=== PATIENT | female | born 1945 | race Caucasian/White ===

== ENCOUNTER 2020-03-09 17:47 | Inpatient (IN) | payer MEDICARE, OTHER ==
[~2020-03-09] VITALS: Ht 160 cm; Wt 49.4 kg
[2020-03-09] MEDS ORDERED: QUET100T PO (18:24)
[2020-03-09] MEDS ORDERED: CHOL10002 PO (18:24)
[2020-03-09] MEDS ORDERED: TRAZ-257 PO (18:24)
[2020-03-09] MEDS ORDERED: QUET25TA PO ×2 (18:24)
[2020-03-09 18:25] LABS: CARBON DIOXIDE 26 mmol/L (21-32); CHLORIDE 105 mmol/L (98-107); CREATININE 0.6 mg/dL (0.6-1.3); GLUCOSE 94 mg/dL (74-106); POTASSIUM 3.6 mmol/L (3.5-5.1); UREA NITROGEN, BLOOD 7 mg/dL (7-18)
[2020-03-09 18:26] LABS: ETHANOL < 3 MG/DL (0-0); PLATELET COUNT (AUTO) 378 K/uL (179-408)
[2020-03-09 18:30] LABS: ALANINE AMINOTRANSFERASE 12 U/L (14-59); ALKALINE PHOSPHATASE 114 U/L (50-136); ASPARTATE AMINOTRANSFERASE 12 U/L (15-37); BASOPHILS % (AUTO) 0.4 % (0.0-2.0); BILIRUBIN,DIRECT 0.1 mg/dL (0.0-0.2); BILIRUBIN,TOTAL 0.3 mg/dL (0.2-1.0); HEMATOCRIT 36.1 % (31.2-41.9); LYMPHOCYTES # (AUTO) 1.9 K/uL (20.0-40.0); LYMPHOCYTES % (AUTO) 25.5 % (20.5-51.5); MEAN CORPUSCULAR HEMOGLOBIN 31.4 uug (24.7-32.8); MEAN CORPUSCULAR HGB CONC 33 g/dL (32.3-35.6); MEAN CORPUSCULAR VOLUME 94.7 fL (75.5-95.3); MONOCYTES # (AUTO) 0.7 K/uL (2.0-10.0); MONOCYTES % (AUTO) 9.6 % (0.0-11.0); NEUTROPHILS # (AUTO) 4.9 K/uL (1.8-8.9); NEUTROPHILS % (AUTO) 64.5 % (38.5-71.5); RED BLOOD CELL COUNT(AUTO) 3.81 MIL/uL (3.63-4.92); TOTAL PROTEIN, SERUM 6.5 g/dL (6.4-8.2); WHITE BLOOD COUNT (AUTO) 7.6 K/uL (3.8-11.8)
[2020-03-09 18:34] LABS: ACETAMINOPHEN < 2.0 ug/mL (10-30)
--- NOTE | 2020-03-09 18:37 | NUR ---
Pt provided fluid, taken w/o difficulty.
[2020-03-09] MEDS ORDERED: OXYCODONE/APAP 5-325 MG TABLET PO ONE (19:15)
[2020-03-09] MEDS ORDERED: LORAZEPAM 0.5 MG TABLET PO ONE (19:45)
[2020-03-09] MEDS ORDERED: LORAZEPAM 0.5 MG TABLET ONE (19:48)
[2020-03-09] MEDS ORDERED: OXYCODONE/APAP 5-325 MG TABLET ONE (19:53)
--- NOTE | 2020-03-09 20:28 | NUR ---
Medically cleared by DR Marshall.
--- NOTE | 2020-03-09 20:52 | NUR ---
Tolerating dinner provided at this time.
--- NOTE | 2020-03-09 22:20 | NUR ---
Transfered to MHU via wheelchair with no distress noted.
[2020-03-09 22:30] VITALS: BP 136/74
[2020-03-09] MEDS ORDERED: MAGNESIUM HYDROXIDE 30 ML LIQUID UDC PO PRN (23:15)
[2020-03-09] MEDS ORDERED: MAG HYDROX/AL HYDROX/SIMETH 30 ML LIQUID UDC PO PRN (23:15)
--- NOTE | 2020-03-09 23:30 | NUR ---
GPS ADMISSION NOTE; Patient is a 74 year old female, brought to the hospital by ambulance on a 5150 from [facility]. Prior to that, patient was living alone in an apartment. Patient admitted on 5150 as DTS. As per hold the patient called 911 because she ran out of " Seroquel " and " feeling suicidal ". Patient stated that she would hurt herself if she did not get help immediately. Upon face to face evaluation, patient is alert and oriented x3. Patient suffers from chronic back pain and was asking for pain medications upon arrival to the unit. Patient admitted to feeling suicidal, but has no plan and does not wish to be but wants medications. Patient stated she is " At war with [facility] because the will not refill my medications. I have not had my medications for 10 days". This patient is anxious and unable to concentrate. Very impatient with admission process. Patient has no family to call, but does have a friend. She lives alone and almost never goes out anywhere. Her appearance is unkept and unclean. Shower offered and patient refused. This selling underwriter oriented patient to the environment, provided a Patient Rights Handbook and the Advisement. VS stable and no acute distress at this time. Patient requested medication for sleep. Multiple allergies noted . [facility] will monitor for safety, pain, insomnia and any behavior escalation. Prior to bed, patient is denying SI and HI. SI precautions in place at this time ,to ensure safety, frequent rounding being done.
[2020-03-09] MEDS: TEMAZEPAM 7.5 MG CAPSULE PO PRN (23:55)
--- NOTE | 2020-03-10 05:57 | NUR ---
Patient received a PRN medication and slept 5.45 hours. No acute issues during the night. No SI at this time Continuing to monitor for safety.
[2020-03-10 07:30] VITALS: BP 134/68
[2020-03-10 07:58] LABS: BILIRUBIN,TOTAL 0.3 mg/dL (0.2-1.0); CREATININE 0.6 mg/dL (0.6-1.3); POTASSIUM 3.5 mmol/L (3.5-5.1); TOTAL PROTEIN, SERUM 6.5 g/dL (6.4-8.2)
[2020-03-10] MEDS ORDERED: HYDROCODONE/APAP 5-325MG TABLET PO PRN (09:15)
[2020-03-10] MEDS ORDERED: OXYCODONE/APAP 5-325 MG TABLET PO PRN (09:30)
--- NOTE | 2020-03-10 10:44 | NUR ---
Firearms Report: Data Reviewer completed and submitted a [employer] firearms report for 5150 danger to self certification. A copy of report has been placed in patient chart.
--- NOTE | 2020-03-10 11:31 | NUR ---
MAYA Initial Discharge Plan: Patient currently resides at home [address] [place] [address], states she is renting a room. Patient provided her psychiatrist as a supportive contact Nava Villatoro ([phone]). SW called and left a voicemail. Patient would like to return home upon discharge. MAYA will continue to work with patient, family, and MD to ensure a safe and proper discharge plan.
--- NOTE | 2020-03-10 11:32 | NUR ---
MAYA Psychiatrist Contact: MAYA contacted patient's psychiatrist as a supportive contact Nava Villatoro ([phone]) however unable to reach at this time and left a voicemail for a return call.
[2020-03-10] MEDS: LORAZEPAM 1 MG TABLET PO PRN (13:02)
[2020-03-10] MEDS: OXYCODONE/APAP 5-325 MG TABLET PO PRN ×2 (17:12→23:36)
[2020-03-10] MEDS: ENSURE ENLIVE (VAN) 240 ML LIQUID PO SCH (17:13)
[2020-03-10 20:00] VITALS: BP 131/76
[2020-03-10] MEDS: TRAZODONE 100 MG TABLET PO SCH (20:00)
[2020-03-11] MEDS: TEMAZEPAM 7.5 MG CAPSULE PO PRN (01:24)
--- NOTE | 2020-03-11 06:14 | NUR ---
GPS: Remain calm and cooperative. compliant with medications. denies si. self care. slept 8.15 hrs through the night after sleeping meds given resting in brd comfortably. continue plan of care.
[2020-03-11 07:30] VITALS: BP 133/69
[2020-03-11] MEDS: CHOLECALCIFEROL 1,000 UNIT TABLET PO SCH (08:13)
[2020-03-11] MEDS: OXYCODONE/APAP 5-325 MG TABLET PO PRN ×3 (08:16→22:22)
[2020-03-11] MEDS: ENSURE ENLIVE (VAN) 240 ML LIQUID PO SCH ×2 (08:18→16:10)
[2020-03-11] MEDS ORDERED: VENLAFAXINE XR 37.5 MG CAP.SR.24H PO SCH (09:00)
[2020-03-11] MEDS: VENLAFAXINE XR 75 MG TAB.ER.24H PO SCH (10:17)
[2020-03-11] MEDS: LORAZEPAM 1 MG TABLET PO PRN ×2 (11:56→17:17)
[2020-03-11 16:02] VITALS: BP 122/65
[2020-03-11] MEDS: TRAZODONE 100 MG TABLET PO SCH (20:42)
[2020-03-11 20:46] VITALS: BP 97/67
--- NOTE | 2020-03-11 21:08 | NUR ---
PATIENT RECEVED IN THE HALLWAY. PATIENT IS PLEASANT UPON APPROACH, CALM AND COOPERATIVE. PATIENT COMPLAINT WITH MEDICATION. PATIENT DENIES SI. PATIENT IS ENCOURAGED TO EXPRESS FEELINGS AND ATTEND GROUP ACTIVITIES. SAFE ENVIRONMENT PROVIDED, FREQUENT ROUNDING. BED IN LOWEST POSITION, BED LOCKED, AND BED ALARM ON WHILE IN BED.
[2020-03-11 22:25] VITALS: BP 120/72
[2020-03-12 07:30] VITALS: BP 102/58
[2020-03-12] MEDS: CHOLECALCIFEROL 1,000 UNIT TABLET PO SCH (08:38)
[2020-03-12] MEDS: OXYCODONE/APAP 5-325 MG TABLET PO PRN ×3 (08:39→20:12)
[2020-03-12] MEDS: VENLAFAXINE XR 75 MG TAB.ER.24H PO SCH (08:39)
[2020-03-12] MEDS: ENSURE ENLIVE (VAN) 240 ML LIQUID PO SCH ×2 (08:40→17:12)
[2020-03-12] MEDS: LORAZEPAM 1 MG TABLET PO PRN (12:24)
[2020-03-12 15:29] VITALS: BP 129/70
--- NOTE | 2020-03-12 16:30 | NUR ---
Gps/Ore Bridge Operator- Attended group therapy this pm. less anxious, adequate relief from her back pain. interacting with her peers.
--- NOTE | 2020-03-12 20:48 | NUR ---
PATIENT RECEIVED IN ACTIVITIES ROOM WATCHING TELEVISION AND COMMUNICATING WITH PEERS. PATIENT IS PLEASANT UPON APPROACH, CALM AND COOPERATIVE. PATIENT COMPLAINT WITH MEDICATION. PATIENT DENIES SI. PATIENT IS ENCOURAGED TO EXPRESS FEELINGS AND ATTEND GROUP ACTIVITIES. SAFE ENVIRONMENT PROVIDED, FREQUENT ROUNDING. BED IN LOWEST POSITION, BED
[2020-03-12] MEDS: TRAZODONE 100 MG TABLET PO SCH (21:35)
[2020-03-12 21:39] VITALS: BP 107/58
[2020-03-13 07:30] VITALS: BP 104/53
[2020-03-13] MEDS: OXYCODONE/APAP 5-325 MG TABLET PO PRN ×3 (07:52→20:02)
[2020-03-13] MEDS: CHOLECALCIFEROL 1,000 UNIT TABLET PO SCH (08:19)
[2020-03-13] MEDS: ENSURE ENLIVE (VAN) 240 ML LIQUID PO SCH ×2 (08:19→16:56)
[2020-03-13] MEDS: VENLAFAXINE XR 75 MG TAB.ER.24H PO SCH (08:19)
[2020-03-13] MEDS: LORAZEPAM 1 MG TABLET PO PRN ×2 (11:40→18:36)
--- NOTE | 2020-03-13 11:56 | NUR ---
MAYA PC Hearing: Patient had probable cause hearing today and it was upheld for danger to self and grave disability.
[2020-03-13 16:35] VITALS: BP 122/72
[2020-03-13 20:17] VITALS: BP 123/74
[2020-03-13] MEDS: QUETIAPINE FUMARATE 25 MG TABLET PO SCH (20:44)
[2020-03-13] MEDS: TRAZODONE 100 MG TABLET PO SCH (20:44)
--- NOTE | 2020-03-14 06:28 | NUR ---
GPS: Remain calm and cooperative. compliant with medications. denies si. self care. slept 7.45 hrs through the night. No agitation noted at this time. resting in bed comfortably. continue plan of care.
[2020-03-14 07:30] VITALS: BP 96/55
[2020-03-14] MEDS: OXYCODONE/APAP 5-325 MG TABLET PO PRN ×3 (08:37→19:55)
[2020-03-14] MEDS: VENLAFAXINE XR 75 MG TAB.ER.24H PO SCH (08:37)
[2020-03-14] MEDS: ENSURE ENLIVE (VAN) 240 ML LIQUID PO SCH ×2 (08:38→16:45)
[2020-03-14] MEDS: CHOLECALCIFEROL 1,000 UNIT TABLET PO SCH (08:39)
[2020-03-14] MEDS: LORAZEPAM 1 MG TABLET PO PRN (12:11)
[2020-03-14 15:08] VITALS: BP 100/60
[2020-03-14 19:57] VITALS: BP 110/61
[2020-03-14] MEDS: TRAZODONE 100 MG TABLET PO SCH (21:05)
[2020-03-14] MEDS: QUETIAPINE FUMARATE 25 MG TABLET PO SCH (21:05)
[2020-03-15] MEDS: OXYCODONE/APAP 5-325 MG TABLET PO PRN ×4 (04:07→23:16)
--- NOTE | 2020-03-15 05:51 | NUR ---
GPS: GPS: Remain calm and cooperative. compliant with medications. denies si. self care. slept 7.15 hrs through the night. Percocet x2 given through the shift for pain. No agitation noted at this time. resting in bed comfortably. continue plan of care.
[2020-03-15] MEDS: LEVOTHYROXINE SODIUM 75 MCG TABLET PO SCH (06:08)
[2020-03-15 07:30] VITALS: BP 96/54
[2020-03-15] MEDS: CHOLECALCIFEROL 1,000 UNIT TABLET PO SCH (09:10)
[2020-03-15] MEDS: VENLAFAXINE XR 75 MG TAB.ER.24H PO SCH (09:10)
[2020-03-15] MEDS: ENSURE ENLIVE (VAN) 240 ML LIQUID PO SCH ×2 (09:11→16:36)
[2020-03-15 15:20] VITALS: BP 92/47
[2020-03-15 20:12] VITALS: BP 114/73
[2020-03-15] MEDS: TRAZODONE 100 MG TABLET PO SCH (20:32)
[2020-03-15] MEDS: QUETIAPINE FUMARATE 25 MG TABLET PO SCH (20:32)
--- NOTE | 2020-03-16 05:42 | NUR ---
Patient slept 7.00 hours last night. Only up once during the night asking for pain medication for her back and up early this am, again wanting pain medication. Patient refusing to shower. Continuing to monitor for pain and safety. Patient denies SI at this time. No acute distress noted.
[2020-03-16] MEDS: OXYCODONE/APAP 5-325 MG TABLET PO PRN ×3 (05:53→23:17)
[2020-03-16] MEDS: LEVOTHYROXINE SODIUM 75 MCG TABLET PO SCH (05:53)
[2020-03-16 07:30] VITALS: BP 94/48
[2020-03-16] MEDS: ENSURE ENLIVE (VAN) 240 ML LIQUID PO SCH ×4 (08:00→17:17)
[2020-03-16] MEDS: CHOLECALCIFEROL 1,000 UNIT TABLET PO SCH (08:48)
[2020-03-16] MEDS: VENLAFAXINE XR 75 MG TAB.ER.24H PO SCH (08:48)
[2020-03-16] MEDS: LORAZEPAM 1 MG TABLET PO PRN (14:46)
[2020-03-16 15:51] VITALS: BP 106/65
[2020-03-16 20:00] VITALS: BP 101/60
[2020-03-16] MEDS: TRAZODONE 100 MG TABLET PO SCH (20:09)
[2020-03-16] MEDS: QUETIAPINE FUMARATE 25 MG TABLET PO SCH (20:10)
--- NOTE | 2020-03-17 06:03 | NUR ---
Patient was requesting pain medication once during the night and slept 7.30 hours. Patient expressed feeling depressed, but denied SI. Mountain Services Manager and patient engaged in meaningful conversation and talked about some cooping strategies. Patient verbalized understanding. No acute issues noted . Continuing to monitor pain level and for safety. Frequent rounding done.
[2020-03-17] MEDS: LEVOTHYROXINE SODIUM 75 MCG TABLET PO SCH (06:47)
[2020-03-17 07:30] VITALS: BP 77/49
[2020-03-17] MEDS: CHOLECALCIFEROL 1,000 UNIT TABLET PO SCH (08:32)
[2020-03-17] MEDS: VENLAFAXINE XR 75 MG TAB.ER.24H PO SCH (08:32)
[2020-03-17] MEDS: OXYCODONE/APAP 5-325 MG TABLET PO PRN ×3 (08:33→20:52)
[2020-03-17] MEDS: ENSURE ENLIVE (VAN) 240 ML LIQUID PO SCH ×3 (08:33→16:21)
[2020-03-17 16:00] VITALS: BP 109/65
[2020-03-17 20:29] VITALS: BP 107/63
[2020-03-17] MEDS: QUETIAPINE FUMARATE 25 MG TABLET PO SCH (21:16)
[2020-03-17] MEDS: TRAZODONE 100 MG TABLET PO SCH (21:16)
[2020-03-17] MEDS: LORAZEPAM 1 MG TABLET PO PRN (22:31)
[2020-03-18] MEDS: LEVOTHYROXINE SODIUM 75 MCG TABLET PO SCH (06:39)
[2020-03-18 07:30] VITALS: BP 96/60
--- NOTE | 2020-03-18 07:30 | NUR ---
received patient in her room, calm cooperative, patient compliant with medication, patient asked for her pain medication, gave pain meds as ordered , monitored [id number] for safety
[2020-03-18] MEDS: CHOLECALCIFEROL 1,000 UNIT TABLET PO SCH (08:24)
[2020-03-18] MEDS: VENLAFAXINE XR 75 MG TAB.ER.24H PO SCH (08:24)
[2020-03-18] MEDS: CLONAZEPAM 0.5 MG TABLET PO SCH ×2 (08:24→16:08)
[2020-03-18] MEDS: ENSURE ENLIVE (VAN) 240 ML LIQUID PO SCH ×3 (09:00→17:00)
[2020-03-18] MEDS: OXYCODONE/APAP 5-325 MG TABLET PO PRN ×3 (09:07→21:50)
[2020-03-18 16:24] VITALS: BP 125/71
--- NOTE | 2020-03-18 18:50 | NUR ---
PATIENT CALM , COOPERATIVE, NO SIGN OF DISTRESS, MONITORED [id number] NEEDS ATTENDED, ENDORSED TO NEXT SHIFT
[2020-03-18 20:00] VITALS: BP 92/54
[2020-03-18 20:22] VITALS: BP 105/71
[2020-03-18] MEDS: QUETIAPINE FUMARATE 25 MG TABLET PO SCH (20:28)
[2020-03-18] MEDS: TRAZODONE 100 MG TABLET PO SCH (20:28)
--- NOTE | 2020-03-18 20:50 | NUR ---
PATIENT RECEIVED IN ACTIVITIES ROOM WATCHING TELEVISION AND COMMUNICATING WITH PEERS. PATIENT IS EASILY AGITATED AND ANGRY. THE PATIENT COMPLAINT WITH MEDICATION. PATIENT DENIES STATES FEELING DEPRESSED DENIES SI AND IS "THINKING OF A PLAN.". PATIENT IS ENCOURAGED TO EXPRESS FEELINGS AND ATTEND GROUP ACTIVITIES. NO AGGRESSIVE OR COMBATIVE BEHAVIOR NOTED. SAFE ENVIRONMENT PROVIDED, FREQUENT ROUNDING. BED IN LOWEST POSITION, BED LOCKED, AND BED ALARM ON WHILE IN BED.
[2020-03-19] MEDS: LEVOTHYROXINE SODIUM 75 MCG TABLET PO SCH (06:11)
[2020-03-19] MEDS: CLONAZEPAM 0.5 MG TABLET PO SCH ×2 (08:06→16:47)
[2020-03-19] MEDS: CHOLECALCIFEROL 1,000 UNIT TABLET PO SCH (08:07)
[2020-03-19] MEDS: ENSURE ENLIVE (VAN) 240 ML LIQUID PO SCH ×3 (08:07→16:46)
[2020-03-19] MEDS: VENLAFAXINE XR 75 MG TAB.ER.24H PO SCH (08:07)
[2020-03-19] MEDS: OXYCODONE/APAP 5-325 MG TABLET PO PRN ×3 (08:53→22:05)
[2020-03-19 10:50] VITALS: BP 95/49
[2020-03-19 16:41] VITALS: BP 98/65
--- NOTE | 2020-03-19 17:46 | NUR ---
Received patient AOx2-3, patient calm, cooperative, patient compliant with medication, asked for pain medication, patient free of injury, monitored for safety [id number], no sign of distress , denies Si and HI , seen and examined by Dr. Lazo, continue orders, will continue monitor
[2020-03-19 20:00] VITALS: BP 110/53
[2020-03-19] MEDS: TRAZODONE 100 MG TABLET PO SCH (20:39)
[2020-03-19] MEDS: QUETIAPINE FUMARATE 25 MG TABLET PO SCH (20:39)
[2020-03-20] MEDS: LEVOTHYROXINE SODIUM 75 MCG TABLET PO SCH (06:00)
--- NOTE | 2020-03-20 06:08 | NUR ---
GPS: GPS: Remain calm and cooperative. compliant with medications. denies si. self care. slept 8 hrs through the night. Percocet x1 given through the shift for pain and effective.No agitation noted at this time. resting in bed comfortably. continue plan of care.
[2020-03-20 07:30] VITALS: BP 91/48
[2020-03-20] MEDS: CLONAZEPAM 0.5 MG TABLET PO SCH ×2 (08:44→16:11)
[2020-03-20] MEDS: VENLAFAXINE XR 75 MG TAB.ER.24H PO SCH (08:44)
[2020-03-20] MEDS: ENSURE ENLIVE (VAN) 240 ML LIQUID PO SCH ×3 (08:45→17:00)
[2020-03-20] MEDS: CHOLECALCIFEROL 1,000 UNIT TABLET PO SCH (08:45)
[2020-03-20] MEDS: OXYCODONE/APAP 5-325 MG TABLET PO PRN ×3 (09:06→21:06)
[2020-03-20 16:32] VITALS: BP 104/62
[2020-03-20 20:08] VITALS: BP 101/68
[2020-03-20] MEDS: TRAZODONE 100 MG TABLET PO SCH (20:30)
[2020-03-20] MEDS: QUETIAPINE FUMARATE 25 MG TABLET PO SCH (20:30)
--- NOTE | 2020-03-20 21:49 | NUR ---
aaox4 patient calm and cooperative. Watching TV upon initial rounds. VSS. Compliant with meds. Needs attended. No behavioral issues noted. Medicated with Percocet for back pain. Relief noted. Will monitor patient. No acute distress noted.
[2020-03-21] MEDS: LEVOTHYROXINE SODIUM 75 MCG TABLET PO SCH (06:21)
[2020-03-21] MEDS: OXYCODONE/APAP 5-325 MG TABLET PO PRN ×3 (06:24→18:45)
--- NOTE | 2020-03-21 06:51 | NUR ---
Slept well most of the shift, had 7 hours of sleep. VSS. Medicated with Percocet for back pain this am. Will monitor patient. Voiding well.
[2020-03-21 07:30] VITALS: BP 96/58
[2020-03-21] MEDS: CLONAZEPAM 0.5 MG TABLET PO SCH ×2 (08:36→16:49)
[2020-03-21] MEDS: CHOLECALCIFEROL 1,000 UNIT TABLET PO SCH (08:36)
[2020-03-21] MEDS: VENLAFAXINE XR 75 MG TAB.ER.24H PO SCH (08:36)
[2020-03-21] MEDS: ENSURE ENLIVE (VAN) 240 ML LIQUID PO SCH ×3 (08:46→17:22)
[2020-03-21] MEDS: LORAZEPAM 1 MG TABLET PO PRN (13:10)
[2020-03-21 16:00] VITALS: BP 113/60
--- NOTE | 2020-03-21 18:06 | NUR ---
Received patient AOx2-3, patient calm, cooperative, patient compliant with medication, asked for pain medication, ativan for anxiety. patient free of injury, monitored for safety [id number], no sign of distress , denies SI and HI , seen by Scarlett CERNA continue orders, will continue to monitor
[2020-03-21 19:30] VITALS: BP 111/41
[2020-03-21] MEDS: QUETIAPINE FUMARATE 25 MG TABLET PO SCH (20:43)
[2020-03-21] MEDS ORDERED: TRAZODONE 100 MG TABLET PO SCH (21:00)
--- NOTE | 2020-03-21 21:37 | NUR ---
Up in the lounge @beginning of shift. AAOx2-3 Compliant with meds. Ambulates to the BR. Voiding well. Needs attended. All due meds given as ordered. Will monitor patient. Denies any pain at this time. No signs of agitation or any behavioral issues noted. VSS.
[2020-03-21] MEDS ORDERED: TRAZODONE 50 MG TABLET PO SCH (22:40)
[2020-03-22] MEDS: LEVOTHYROXINE SODIUM 75 MCG TABLET PO SCH (06:17)
--- NOTE | 2020-03-22 06:26 | NUR ---
slept well for 7 hours. No distress noted. Kept comfortable. all needs attended and met. ambulates to the BR. Voiding. No behavioral issues throughout the night.
[2020-03-22 07:49] VITALS: BP 110/44
[2020-03-22] MEDS: CHOLECALCIFEROL 1,000 UNIT TABLET PO SCH (08:15)
[2020-03-22] MEDS: VENLAFAXINE XR 75 MG TAB.ER.24H PO SCH (08:15)
[2020-03-22] MEDS: CLONAZEPAM 0.5 MG TABLET PO SCH ×2 (08:16→16:25)
[2020-03-22] MEDS: ENSURE ENLIVE (VAN) 240 ML LIQUID PO SCH ×3 (08:17→16:26)
[2020-03-22] MEDS: OXYCODONE/APAP 5-325 MG TABLET PO PRN ×3 (08:24→21:28)
[2020-03-22 15:57] VITALS: BP 114/66
--- NOTE | 2020-03-22 16:00 | NUR ---
Gps/Pure Pak Machine Operator- Had been in and out of the activity room. Complained of lower back pain relieved . by percocet 1 tab po. tends to get isolative staying in bed most of the morning.
[2020-03-22 20:15] VITALS: BP 101/58
[2020-03-22] MEDS: QUETIAPINE FUMARATE 25 MG TABLET PO SCH (20:17)
[2020-03-22] MEDS: TRAZODONE 50 MG TABLET PO SCH (20:18)
--- NOTE | 2020-03-22 22:00 | NUR ---
GPS: Received patient AOx2-3, ambulatory lying in bed. patient calm, cooperative and compliant with medication, no anxiety noted. patient free of injury, monitored for safety [id number], no sign of distress , denies SI and HI , will continue to monitor
[2020-03-23] MEDS: LEVOTHYROXINE SODIUM 75 MCG TABLET PO SCH (06:25)
--- NOTE | 2020-03-23 06:44 | NUR ---
GPS: GPS: Remain calm and cooperative. compliant with medications. denies si. self care. slept 8.15 hrs through the night. compliant with am po medications. No agitation noted at this time. resting in bed comfortably. continue plan of care.
[2020-03-23 07:42] VITALS: BP 100/58
[2020-03-23] MEDS: CHOLECALCIFEROL 1,000 UNIT TABLET PO SCH (08:52)
[2020-03-23] MEDS: VENLAFAXINE XR 75 MG TAB.ER.24H PO SCH (08:52)
[2020-03-23] MEDS: OXYCODONE/APAP 5-325 MG TABLET PO PRN ×3 (08:55→21:12)
[2020-03-23] MEDS: CLONAZEPAM 0.5 MG TABLET PO SCH ×2 (09:00→16:51)
[2020-03-23] MEDS: ENSURE ENLIVE (VAN) 240 ML LIQUID PO SCH ×3 (09:07→18:06)
[2020-03-23 16:09] VITALS: BP 98/59
[2020-03-23 20:06] VITALS: BP 98/66
[2020-03-23] MEDS: LORAZEPAM 1 MG TABLET PO PRN (20:58)
[2020-03-23] MEDS: TRAZODONE 50 MG TABLET PO SCH (21:37)
[2020-03-23] MEDS: QUETIAPINE FUMARATE 25 MG TABLET PO SCH (21:37)
[2020-03-24] MEDS: OXYCODONE/APAP 5-325 MG TABLET PO PRN ×2 (03:17→09:20)
[2020-03-24] MEDS: LEVOTHYROXINE SODIUM 75 MCG TABLET PO SCH (06:31)
--- NOTE | 2020-03-24 06:45 | NUR ---
Received Pt at the nurse's station requesting her prn Percocet. Pt reminded the her next dose was at 2106 and she snapped and became angry stating, "I want it now". Pt educated on medication frequency, but she remained irritable and walked away. Pt asked for her medication 2 more times before 2106. Percocet also administered at 314 for 9/10 chronic back pain. Pt is rude, needy and demanding with narcotic medications, requires frequent reminders, education, and redirection. Denies SI, verbally contracts for safety. VS stable.
[2020-03-24 07:30] VITALS: BP 107/50
--- NOTE | 2020-03-24 08:33 | NUR ---
Discharge Note: Patient will be discharged back home [address] [place] [address]. Patient will be given a taxi voucher and provided with taxi transportation at 11AM. Patient is alert and oriented x4. Patient denies suicidal or homicidal ideation. Patient is aware and agreeable with discharge plan. Patient is independent. Patient presents with euthymic mood and congruent affect. Patient will be following up with her psychiatrist Dr. Nava Villatoro [address] [facility] [address], [place] [address] ([phone]) and has an appointment scheduled Monday03/25/20 at 5pm. Patient will be following up with her saloon keeper Dr. Zach Sandhu [address] [place] [address] ([phone]) has an appointment scheduled on 03/24/20 at 12pm.
[2020-03-24] MEDS: CHOLECALCIFEROL 1,000 UNIT TABLET PO SCH (08:37)
[2020-03-24] MEDS: ENSURE ENLIVE (VAN) 240 ML LIQUID PO SCH (08:38)
[2020-03-24] MEDS: VENLAFAXINE XR 75 MG TAB.ER.24H PO SCH (08:53)
[2020-03-24] MEDS: CLONAZEPAM 0.5 MG TABLET PO SCH (09:00)
--- NOTE | 2020-03-24 11:51 | NUR ---
Discharge instructions given to the patient with verbalized understanding. Discharge papers signed by and given to the patient. All belongings well accounted for. Patient remains alert, oriented x 4, not in any form of distress, on room air, ambulatory. She denies any suicidal ideations, hallucinations, or delusions. She denies any pain or discomfort at this time. Assisted patient safely to the front lobby via wheelchair and picked up by [employer] with [employer] voucher at 11:20AM
== END 2020-03-24 11:20 | disposition home or self-care (01) | DRG 885 ==
LOC: ER 17:50 → GPS 21:58
PROVIDERS: ADMIT Psychiatry & Neurology Psychiatry; ATTEND Student in an Organized Health Care Education/Training Program
DX: F33.3 Major depressive disorder, recurrent, severe with psychotic symptoms (principal); R45.851 Suicidal ideations; E44.0 Moderate protein-calorie malnutrition; Z68.1 Body mass index [BMI] 19.9 or less, adult; Z20.822 Contact with and (suspected) exposure to COVID-19; F41.0 Panic disorder [episodic paroxysmal anxiety]; Z91.5 Personal history of self-harm; E03.9 Hypothyroidism, unspecified; G89.29 Other chronic pain
CPT/HCPCS: 36415; 70030-TC; 71045; 84443; 85025; 93005; A4663; G0480